=== PATIENT | male | born 1970 | race African-American/Black ===

== ENCOUNTER → 2016-11-15 | Outpatient (CLI) | payer OTHER ==
[~2016-11-15] MED LIST: FLEXERIL PO; NAPROXEN PO; ORUDIS75 M1 PO; ZESTORETIC
--- NOTE | ~2016-11-15 | MR17 ---
[facility] A Service of [facility] & [facility] RADIOLOGY TEXT RESULTS PATIENT: TAY BOB LOCATION: [facility] : 71 UNIT #: [id number] AGE: [address]: Dar Law II, MD SEX: M ORDER DR: [id number] [facility] [address] [place], [place] [address] [id number] O MR#: [id number] Acc #: [id number] NAME: TAY BOB : 1970 SEX: M STUDY DATE/TIME: 11/15/2016 17:53 UNIT: [facility] ROOM: STUDY DESCRIPTION: MR Brain WWo Contrast Attending Physician: Dar Law II., M.D. Ordering Physician: Dar Law II., M.D. Primary Care Physician: Manfred Bolaños M.D. MRI CENTER REPORT This report is preliminary unless electronic signature is present. EXAM MRI of the brain with and without contrast INDICATION Short-term memory loss. Patient feels symptoms of dementia and patient is concerned since he has a father with dementia at age 63. The patient has been forgetting where he places things for a year. No history of cancer. No trauma history. COMMENT MRI of the brain was performed prior to and following intravenous administration of 20 mL of MultiHance. There is no comparison study at this institution. There is no evidence for a recent ischemic insult on the diffusion series. No MRI evidence for intracranial hemorrhage. No extraaxial fluid collection or intracranial mass effect. The ventricles are normal in size and configuration for age group. The mastoid air cells are clear. There is mild mucosal disease in the paranasal sinuses but no sinus air-fluid level. Patient has an anterior dominant circulation. Major intracranial flow voids are maintained. No Chiari-I malformation. There are a few small foci of white matter signal abnormality, largest apparent at the right lateral frontal subcortical white matter about 4.0-5.0 mm. A few other smaller lesions appreciated as well. The amount seen is within the range of expected for age group and probably not of further significance clinically. Please correlate for risk factors for small vessel disease. There is no pattern of atrophy or particular volume loss for age group. Following contrast administration, there is no pathologic intracranial enhancement or intracranial mass lesion. No intracranial mass effect. IMPRESSION 1. Minor nonspecific white matter signal abnormality essentially within STS. [facility] A Service of [facility] & [facility] RADIOLOGY TEXT RESULTS PATIENT: TAY BOB LOCATION: [facility] : 71 UNIT #: [id number] AGE: [address]: Dar Law II, MD SEX: M ORDER DR: the range of expected for age group. Please correlate for any risk factors for small vessel disease. 2. Otherwise essentially normal MRI of the brain with and without contrast for age group. Dictated by... Alejandra Lynne M.D. THIS IS AN ELECTRONICALLY VERIFIED REPORT Alejandra Lynne M.D. at 11/16/2016 5:00 PM Ruperto TD: 11/16/2016 10:47 JOB #: [id number] [facility]ENTER REPORT COPY
== END | disposition home or self-care (01) ==
LOC: CMRI 17:35
DX: R41.3 Other amnesia (principal)
CPT/HCPCS: 70553; A9577